=== PATIENT | male | born 1955 | race Caucasian/White ===

== ENCOUNTER 2025-04-27 20:44 | Emergency (ER) | payer OTHER ==
[~2025-04-27] VITALS: Ht 172.7 cm; Wt 95.7 kg
[2025-04-28 01:15] VITALS: BP 139/77; O2SAT 100
[2025-04-28 01:21] VITALS: TEMP 97.8
== END 2025-04-28 01:25 | disposition home or self-care (01) ==
LOC: M ED 20:44
DX: J06.9 Acute upper respiratory infection, unspecified (principal); E11.9 Type 2 diabetes mellitus without complications; I10 Essential (primary) hypertension; F32.A Depression, unspecified; F41.9 Anxiety disorder, unspecified; Z90.49 Acquired absence of other specified parts of digestive tract; F17.290 Nicotine dependence, other tobacco product, uncomplicated